=== PATIENT | male | born 1985 | race Caucasian/White ===

== ENCOUNTER 2016-09-05 09:05 | Emergency (ER) | payer OTHER ==
[2016-09-05 09:12] VITALS: BP 117/80
--- NOTE | 2016-09-05 09:32 | ED Physician Documentation ---
History of Present Illness - Stated complaint Stated Complaint: SORE THROAT - Chief complaint Chief Complaint: Heent - Additonal information Additional information: Patient is a 30-year-old male with no past medical history presents with a one-day history of sore throat. He also has mild bilateral otalgia. There is no cough, nausea vomiting, constipation, diarrhea, lower urinary symptoms. He says he has had myalgias and has felt warm. There are no ill contacts at home. Review of systems: For complete review of systems please see history of present illness otherwise all other systems have been reviewed and are normal. Review of Systems Ten Systems: 10 systems reviewed and negative Constitutional: reports: Fever, Myalgias Eyes: denies: Loss of vision PD PAST MEDICAL HISTORY - Past Medical History Past Medical History: No - Past Surgical History Past Surgical History: Yes - Present Medications Home Medications: Ambulatory Orders Medication Instructions Recorded Confirmed Amoxicillin 875 mg PO BID #14 tablet 09/05/16 - Allergies Allergies/Adverse Reactions: Allergies Allergy/AdvReac Type Severity Reaction Status Date / Time Sulfa (Sulfonamide Allergy Unknown Verified 09/05/16 09:10 Antibiotics) - Social History Does the pt smoke?: No Smoking Status: Never smoker Does the pt drink ETOH?: No Does the pt have substance abuse?: No - Immunizations Immunizations are current?: Yes PD ED PE NORMAL - Vitals Vital signs reviewed: Yes - General General: Alert and oriented X 3 - HEENT HEENT: PERRL, Pharynx benign, Other (Erythema posterior pharynx a few white spots seen on the left) - Neck Neck: Supple, no meningeal sign - Cardiac Cardiac: RRR, No murmur - Respiratory Respiratory: Clear bilaterally - Abdomen Abdomen: Normal bowel sounds, Soft, Non tender, Non distended - Derm Derm: Warm and dry - Extremities Extremities: No deformity - Neuro Neuro: Alert and oriented X 3 - Psych Psych: Normal mood, Normal affect Results - Vitals Vitals: Vital Signs - 24 hr 09/05/16 09:09 Temperature 36.6 C Heart Rate 62 Respiratory 18 Rate Blood Pressure 117/80 O2 Saturation 99 Oxygen O2 Source Room air PD MEDICAL DECISION MAKING - ED course ED course: Patient is a well-appearing young male with sore throat 1 day on examination he has moderate oropharyngeal erythema. We talked about strep testing and about the lack of sensitivity. Given his symptoms he is aware that this could be strep or viral and we will initiate treatment today based on his wishes. Disposition: To home Clinical impression: 1. Pharyngitis-presumed strep Departure - Departure Disposition: Home, Self Care Clinical Impression: Pharyngitis Condition: Good Instructions: ED Strep Pharyngitis Poss Follow-Up: your,physician [Other] Prescriptions: Amoxicillin 875 mg PO BID #14 tablet Discharge Date/Time: 09/05/16 09:40
== END 2016-09-05 09:40 | disposition home or self-care (01) ==
LOC: ED 09:05
DX: J02.9 Acute pharyngitis, unspecified (principal)
CPT/HCPCS: 99283

== ENCOUNTER 2018-02-25 09:52 | Emergency (ER) | payer OTHER ==
[2018-02-25 10:34] LABS: BILIRUBIN,URINE NEGATIVE (NEGATIVE); GLUCOSE, URINE (UA) NEGATIVE (NEGATIVE); KETONES,URINE (UA) NEGATIVE (NEGATIVE); LEUKOCYTE ESTERASE, URINE NEGATIVE (NEGATIVE); NITRITE,URINE NEGATIVE (NEGATIVE); OCCULT BLOOD,URINE NEGATIVE (NEGATIVE); PROTEIN,URINE NEGATIVE (NEGATIVE); UROBILINOGEN,URINE 0.2 (NORMAL) E.U./dL (NORMAL)
[2018-02-25 10:35] LABS: CLARITY,URINE CLEAR (CLEAR)
--- NOTE | 2018-02-25 10:52 | ED Physician Documentation ---
PD HPI MALE - Stated complaint Stated Complaint: FREQUENT URINATION - Chief complaint Chief Complaint: UTI - History obtained from History obtained from: Patient - History of Present Illness Timing - onset: How many days ago (3) Timing - details: Still present Associated symptoms: Urinary frequency Similar symptoms before: Has not had sx before - Additional information Additional information: The patient is an otherwise healthy 32-year-old male who presents with urinary frequency of 3 days duration. He denies dysuria, abdominal pain, or fever. He denies nausea or vomiting. He did have loose stool yesterday and today. He reports that 2 weeks ago he had severe right flank pain that lasted for several hours before resolving. He has family history with many members experiencing kidney stones. He has no personal history of kidney stones. Review of Systems Constitutional: denies: Fever Nose: denies: Congestion Throat: denies: Sore throat Cardiac: denies: Chest pain / pressure Respiratory: denies: Dyspnea, Cough GI: denies: Abdominal Pain, Nausea, Vomiting : reports: Frequency. denies: Dysuria, Discharge Skin: denies: Rash Musculoskeletal: reports: Back pain (Right flank pain 2 weeks ago.) Neurologic: denies: Focal weakness, Numbness, Headache PD PAST MEDICAL HISTORY - Past Medical History Past Medical History: No Cardiovascular: None Respiratory: None Neuro: None Endocrine/Autoimmune: None GI: None : None HEENT: None Psych: None Musculoskeletal: None Derm: None - Past Surgical History Past Surgical History: Yes - Present Medications Home Medications: Ambulatory Orders Medication Instructions Recorded Confirmed Oxycodone HCl/Acetaminophen 1 - 2 each PO Q6H PRN #10 tablet 02/25/18 [Percocet 5-325 mg Tablet] Tamsulosin HCl [Flomax] 0.4 mg PO DAILY #7 capsule 02/25/18 - Allergies Allergies/Adverse Reactions: Allergies Allergy/AdvReac Type Severity Reaction Status Date / Time Sulfa (Sulfonamide Allergy Unknown Verified 02/25/18 10:00 Antibiotics) - Social History Does the pt smoke?: Yes Smoking Status: Current every day smoker Does the pt drink ETOH?: Yes ETOH Use: Beer, Liquor Does the pt have substance abuse?: No - Family History Family history: reports: Other (Family history of kidney stones.) - Immunizations Immunizations are current?: Yes - POLST Patient has POLST: No PD ED PE NORMAL - Vitals Vital signs reviewed: Yes (Borderline hypertension initially.) - General General: Alert and oriented X 3, Well developed/nourished - HEENT HEENT: Atraumatic - Neck Neck: No adenopathy, No JVD - Cardiac Cardiac: RRR - Respiratory Respiratory: No respiratory distress, Clear bilaterally - Abdomen Abdomen: Soft, Non tender - Back Back: No spinal TTP, Other (Mild right flank tenderness to percussion.) - Derm Derm: No rash - Extremities Extremities: No edema, No calf tenderness / cord - Neuro Neuro: Alert and oriented X 3, No motor deficit, Normal speech Results - Vitals Vitals: Oxygen O2 Source Room air - Labs Labs: Laboratory Tests 02/25/18 10:04 Urine Color YELLOW Urine Clarity CLEAR Urine pH 6.0 Ur Specific [place] 1.025 Urine Protein NEGATIVE Urine Glucose (UA) NEGATIVE Urine Ketones NEGATIVE Urine Occult Blood NEGATIVE Urine Nitrite NEGATIVE Urine Bilirubin NEGATIVE Urine Urobilinogen 0.2 (NORMAL) Ur Leukocyte Esterase NEGATIVE Ur Microscopic Review NOT INDICATED Urine Culture Comments NOT INDICATED - Rads (name of study) CT abd/pelvis Radiology: Prelim report reviewed, EMP read contemporaneously, See rad report (Nonobstructing 4 mm right distal ureteral stone.) PD MEDICAL DECISION MAKING - ED course Complexity details: reviewed results, re-evaluated patient, considered differential, d/w patient, d/w family ED course: The patient's presentation is most consistent with a right distal ureteral stone, visualized on CT scan, without hydronephrosis or hydroureter. His presentation does not suggest pyelonephritis or abdominal aortic aneurysm. I discussed with him and his the diagnosis, symptomatic treatment and outpatient follow-up, as well as potentially worrisome signs or symptoms that should prompt reevaluation in the emergency department. He is being discharged with prescriptions for Flomax and for Percocet, 10 tablets. Departure - Departure Disposition: 01 Home, Self Care Clinical Impression: Right distal ureteral calculus Condition: Stable Instructions: ED Stone Renal W Colic Follow-Up: MARIIA Griffin [Provider Group] Prescriptions: Oxycodone HCl/Acetaminophen [Percocet 5-325 mg Tablet] 1 - 2 each PO Q6H PRN #10 tablet PRN Reason: pain Tamsulosin HCl [Flomax] 0.4 mg PO DAILY #7 capsule Comments: Any of fluids. You can use ibuprofen, up to 800 mg 3 times daily for its anti-inflammatory effect. Take Flomax daily as prescribed. You can use Percocet as prescribed if needed for pain. Follow-up with your primary physician within 1 week. Call to schedule appointment. Return to the emergency department if you develop increasing pain, persistent vomiting, fever, or otherwise worsening symptoms. Discharge Date/Time: 02/25/18 13:09
--- NOTE | 2018-02-25 12:19 | CT Report ---
Reason: right flank pain Procedure Date: 02/25/2018 Accession Number: [id number] / [id number] Procedure: CT - Abdomen/Pelvis W/O CPT Code: FULL RESULT: EXAM: CT ABDOMEN AND PELVIS (CT KUB) EXAM DATE: 02/25/2018 11:49 AM. CLINICAL HISTORY: Right flank pain. COMPARISONS: None. TECHNIQUE: Routine axial helical CT imaging was performed through the abdomen and pelvis without IV contrast. Reconstructions: Coronal and sagittal. In accordance with CT protocol optimization, one or more of the following dose reduction techniques were utilized for this exam: automated exposure control, adjustment of mA and/or KV based on patient size, or use of iterative reconstructive technique. FINDINGS: Lung Bases: Unremarkable. Right Kidney/Ureter: Nonobstructing 4 mm right distal ureteral calculus. 2 mm nonobstructing right renal calculus. No significant hydronephrosis, or hydroureter. No perinephric fat stranding. Left Kidney/Ureter: No stones, hydronephrosis, or hydroureter. No perinephric fat stranding. Other Solid Organs: Noncontrast images of the solid organs are grossly unremarkable. Gallbladder/Bile Ducts: Unremarkable. Peritoneal Cavity: No free fluid, free air or regina adenopathy. Bowel is grossly unremarkable. Appendix is normal. No signs of inflammation in the gallbladder fossa and the gallbladder is not dilated. Pelvic Organs: No bladder stones or wall thickening. Noncontrast images of the visualized pelvic organs are unremarkable. Vasculature: Unremarkable. Other: None. IMPRESSION: Nonobstructing distal right 4 mm ureteral calculus. RADIA
[2018-02-25 13:11] VITALS: BP 128/82
== END 2018-02-25 13:09 | disposition home or self-care (01) ==
LOC: ED 09:52
DX: N20.1 Calculus of ureter (principal); F17.200 Nicotine dependence, unspecified, uncomplicated
CPT/HCPCS: 74176; 81001; 81003; 87086; 99283

== ENCOUNTER 2018-03-03 19:41 | Emergency (ER) | payer OTHER ==
--- NOTE | 2018-03-03 20:05 | ED Physician Documentation ---
PD HPI ABD PAIN - Stated complaint Stated Complaint: ABD PX - Chief complaint Chief Complaint: Abd Pain - History obtained from History obtained from: Patient - History of Present Illness Timing - onset: How many weeks ago (1) Timing - details: Intermittant Pain level now: 3 Quality: Pain Location: Other Radiation: Right flank Improved by: Other (nothing) Worsened by: Other (no exacerbating factors) Similar symptoms before: Diagnosis (renal colic) Recently seen: Emergency Dept - Additional information Additional information: T+R 1 week ago from this ED for renal colic (right ureteral calculus), returns due to nausea, vomiting, diarrhea, episodic right flank and back pain that radiates to RLQ, frequent urination. He has an appointment with [facility] tomorrow. His chief reason for returning is he had fever to Tmax 100.9 earlier tonight and d/c instructions included return to ED for temp. greater than 100.3 Review of Systems Constitutional: reports: Fever Cardiac: reports: Reviewed and negative Respiratory: reports: Reviewed and negative GI: reports: Abdominal Pain, Nausea, Vomiting, Diarrhea : reports: Frequency. denies: Dysuria, Hematuria Musculoskeletal: reports: Back pain PD PAST MEDICAL HISTORY - Past Medical History Past Medical History: No Cardiovascular: None Respiratory: None Neuro: None Endocrine/Autoimmune: None GI: None : None HEENT: None Psych: None Musculoskeletal: None Derm: None - Past Surgical History Past Surgical History: Yes - Present Medications Home Medications: Ambulatory Orders Medication Instructions Recorded Confirmed Oxycodone HCl/Acetaminophen 1 - 2 each PO Q6H PRN #10 tablet 02/25/18 [Percocet 5-325 mg Tablet] Tamsulosin HCl [Flomax] 0.4 mg PO DAILY #7 capsule 02/25/18 - Allergies Allergies/Adverse Reactions: Allergies Allergy/AdvReac Type Severity Reaction Status Date / Time Sulfa (Sulfonamide Allergy Unknown Verified 03/03/18 19:48 Antibiotics) - Social History Does the pt smoke?: Yes Smoking Status: Current every day smoker Does the pt drink ETOH?: Yes Does the pt have substance abuse?: No - Immunizations Immunizations are current?: Yes - POLST Patient has POLST: No PD ED PE NORMAL - Vitals Vital signs reviewed: Yes - General General: Alert and oriented X 3, No acute distress, Well developed/nourished - HEENT HEENT: Moist mucous membranes - Neck Neck: Supple, no meningeal sign - Cardiac Cardiac: No murmur - Respiratory Respiratory: No respiratory distress, Clear bilaterally - Abdomen Abdomen: Soft, Non tender, Non distended - Back Back: No CVA TTP - Derm Derm: Normal color, Warm and dry PD ED PE EXPANDED - Cardiac Cardiac: Tachy, Regular Rhythm Results - Vitals Vitals: Vital Signs - 24 hr 03/03/18 03/03/18 19:43 21:32 Temperature 37.4 C Heart Rate 108 H 100 Respiratory 20 14 Rate Blood Pressure 106/63 109/66 O2 Saturation 96 100 Oxygen O2 Source Room air - Labs Labs: Microbiology 03/03/18 20:38 Campylobacter Antigen Assay - Final Stool Laboratory Tests 03/03/18 03/03/18 03/03/18 20:15 20:15 20:38 WBC 8.9 RBC 5.02 Hgb 15.6 Hct 45.7 MCV 91.0 MCH 31.1 H MCHC 34.2 RDW 12.4 Plt Count 217 MPV 7.0 L Neut # (Auto) 8.0 H Lymph # (Auto) 0.3 L [place] # (Auto) 0.5 Eos # (Auto) 0.1 Baso # (Auto) 0.0 Absolute Nucleated RBC 0.00 Nucleated RBC % 0.0 Sodium 135 Potassium 3.6 Chloride 102 Carbon Dioxide 22 Anion Gap 11.0 BUN 18 Creatinine 1.1 Estimated GFR (MDRD) 79 L Glucose 132 H Calcium 9.2 Total Bilirubin 0.7 AST 30 ALT 35 Alkaline Phosphatase 64 Total Protein 7.7 Albumin 4.5 Globulin 3.2 Albumin/Globulin Ratio 1.4 Lipase 23 Urine Color YELLOW Urine Clarity CLEAR Urine pH 6.0 Ur Specific [place] 1.025 Urine Protein NEGATIVE Urine Glucose (UA) NEGATIVE Urine Ketones 40 H Urine Occult Blood NEGATIVE Urine Nitrite NEGATIVE Urine Bilirubin NEGATIVE Urine Urobilinogen 0.2 (NORMAL) Ur Leukocyte Esterase NEGATIVE Ur Microscopic Review NOT INDICATED Urine Culture Comments NOT INDICATED PD MEDICAL DECISION MAKING - ED course Complexity details: reviewed old records, reviewed results, re-evaluated patient, considered differential, d/w patient ED course: Reported improvement after IV fluids and toradol. Declined other analgesics and declined antinauseants and antidiarrheals Departure - Departure Disposition: 01 Home, Self Care Clinical Impression: Renal colic, Gastroenteritis Condition: Good Instructions: ED Stone Renal W Colic, ED Vomiting Diarrhea Nonspecific Ad Follow-Up: MARLENE MORTON MD [Primary Care Provider] - (Tomorrow as scheduled) Discharge Date/Time: 03/03/18 21:55
[2018-03-03] MEDS ORDERED: KETOROLAC 60 MG/2 ML VIAL IVP STA (20:31)
[2018-03-03] MEDS ORDERED: SODIUM CHLORIDE 0.9% 1,000 ML IV STA (20:31)
[2018-03-03 20:39] LABS: BASOPHILS % (AUTO) 0.3 %; EOSINOPHILS # (AUTO) 0.1 10^3/uL (0.0-0.7); EOSINOPHILS % (AUTO) 1.1 %; HGB - HEMOGLOBIN 15.6 g/dL (14.0-18.0); LYMPHOCYTES # (AUTO) 0.3 10^3/uL (1.5-3.5); LYMPHOCYTES % (AUTO) 3.8 %; MEAN CORPUSCULAR HEMOGLOBIN 31.1 pg (27.0-31.0); MEAN CORPUSCULAR HGB CONC 34.2 g/dL (32.0-36.0); MONOCYTES # (AUTO) 0.5 10^3/uL (0.0-1.0); MONOCYTES % (AUTO) 5.3 %; NEUTROPHILS % (AUTO) 89.5 %; PLT - PLATELET COUNT 217 10^3/uL (130-450); RED BLOOD COUNT 5.02 10^6/uL (4.70-6.10); RED CELL DISTRIBUTION WIDTH 12.4 % (12.0-15.0); WHITE BLOOD COUNT 8.9 x10^3/uL (4.8-10.8)
[2018-03-03 20:48] LABS: BILIRUBIN,URINE NEGATIVE (NEGATIVE); GLUCOSE, URINE (UA) NEGATIVE (NEGATIVE); KETONES,URINE (UA) 40 mg/dL (NEGATIVE); LEUKOCYTE ESTERASE, URINE NEGATIVE (NEGATIVE); NITRITE,URINE NEGATIVE (NEGATIVE); OCCULT BLOOD,URINE NEGATIVE (NEGATIVE); PROTEIN,URINE NEGATIVE (NEGATIVE); UROBILINOGEN,URINE 0.2 (NORMAL) E.U./dL (NORMAL)
[2018-03-03 20:49] LABS: ALBUMIN 4.5 g/dL (3.2-5.5); ALBUMIN/GLOBULIN RATIO 1.4 (1.0-2.2); BILIRUBIN,TOTAL 0.7 mg/dL (0.2-1.0); CALCIUM 9.2 mg/dL (8.5-10.3); CREATININE 1.1 mg/dL (0.6-1.2); TOTAL PROTEIN 7.7 g/dL (6.7-8.2)
[2018-03-03 20:57] LABS: CLARITY,URINE CLEAR (CLEAR)
[2018-03-03 21:32] VITALS: BP 109/66
== END 2018-03-03 21:55 | disposition home or self-care (01) ==
LOC: ED 19:41
DX: N23 Unspecified renal colic (principal); K52.9 Noninfective gastroenteritis and colitis, unspecified; F17.200 Nicotine dependence, unspecified, uncomplicated
CPT/HCPCS: 36415; 80053; 81001; 81003; 83690; 85025; 87045; 87046; 87086; 87493; 96361; 96374; 99283